=== PATIENT | male | born 1955 | race Caucasian/White ===

== ENCOUNTER 2021-10-21 08:18 | Day surgery (SDC) | payer MEDICARE, MEDICAID ==
[2021-10-14 16:15] LABS: BASOPHILS # (AUTO) 0.1 X10'3 (0-0.2); BASOPHILS % (AUTO) 1.5 % (0-1); EOSINOPHILS # (AUTO) 0.2 X10'3 (0-0.9); EOSINOPHILS % (AUTO) 3.1 % (0-6); LYMPHOCYTES # (AUTO) 1.9 X10'3 (1.1-4.8); LYMPHOCYTES % (AUTO) 25.3 % (21-51); MEAN CORPUSCULAR HEMOGLOBIN 29.9 PG (27.0-31.0); MEAN CORPUSCULAR HGB CONC 33.8 g/dL (33.0-36.5); MEAN CORPUSCULAR VOLUME 88.4 FL (78-98); MEAN PLATELET VOLUME 7.3 FL (7.4-10.4); MONOCYTES # (AUTO) 0.6 X10'3 (0-0.9); MONOCYTES % (AUTO) 8.1 % (2-12); NEUTROPHILS # (AUTO) 4.6 X10'3 (1.8-7.7); PRE OP HEMATOCRIT 38.6 % (42.0-52.0); PRE OP HEMOGLOBIN 13.1 g/dL (14.0-17.9); PRE OP PLATELET COUNT 272 X10'3 (140-440); RED BLOOD COUNT 4.37 X10'6 (4.70-6.10); RED CELL DISTRIBUTION WIDTH 13.8 % (11.5-14.5)
[2021-10-14 16:32] LABS: ALBUMIN 3.5 G/DL (3.4-5.0); ALBUMIN/GLOBULIN RATIO 0.9 (1.1-1.5); ALKALINE PHOSPHATASE 98 IU/L (46-116); BLOOD UREA NITROGEN 16 MG/DL (7-18); BUN/CREATININE RATIO 13.3 (5.4-32.0); CALCIUM 8.8 MG/DL (8.5-10.1); CHLORIDE 101 MMOL/L (99-107); PRE OP ALT 18 U/L (30-65); PRE OP ANION GAP 6 (8-16); PRE OP AST 16 U/L (10-37); PRE OP BILIRUB, TOTAL 0.3 MG/DL (0.0-1.0); PRE OP GLUCOSE 98 MG/DL (70-104); PRE OP POTASSIUM 3.8 MMOL/L (3.4-5.1); PRE OP SODIUM 138 MMOL/L (135-145); TOTAL CARBON DIOXIDE 30.9 MMOL/L (24-32); TOTAL PROTEIN 7.2 G/DL (6.4-8.2); eGFR 61 ML/MIN
[~2021-10-21] VITALS: Ht 172.7 cm; Wt 112.3 kg
[2021-10-21] VITALS (7 sets, daily range): BP systolic 124–134; BP diastolic 66–78
[~2021-10-21 08:18] MED LIST: ASPI-1265 PO; CLOP75TA34 PO; CYAN100087 PO; DOCUMENT DATE & TIME OF BETA-BLOCKER PO ONE; FERR324T PO; HYDR-3972 PO; LOSA1TAB39 PO; METF-1203 PO; PANT20TA18 PO; PREG150C46 PO; SERT-432; SIMV-45 PO; albuterol 2.5 MG/3 ML nebule NEB ONE; ceFAZolin inj. 2,000 MG in dextrose 5%-water 100 ML IV ONE; famotidine 20mg tablet PO ONE; ringers solution, lacted 1,000 ML IV SCH
[2021-10-21] MEDS ORDERED: BUPIVAcaine 0.5% inj/PF 30 ML ONE (09:33)
[2021-10-21] MEDS ORDERED: meperidine/PF 25mg/ml syringe IV PRN ×3 (09:40)
[2021-10-21] MEDS ORDERED: ringers solution, lacted 1,000 ML IV SCH (09:40)
[2021-10-21] MEDS ORDERED: ondansetron/PF 4mg/2ml inj IV PRN (09:40)
[2021-10-21] MEDS ORDERED: morphine 4 MG/ML inj SYRINge IV PRN (09:40)
[2021-10-21] MEDS ORDERED: morphine 2 MG/ML inj. syringe IV PRN (09:40)
[2021-10-21] MEDS ORDERED: proCHLORperazine 10 MG/2 ml inj IV PRN (09:40)
[2021-10-21] MEDS ORDERED: fentaNYL/PF 50MCG/1 ML 2ML syringe ONE (09:48)
[2021-10-21] MEDS ORDERED: midazolam 1 mg/ML 2ml injection ONE (09:49)
[2021-10-21] MEDS ORDERED: BUPIVAcaine 0.5% inj/PF 30 ml vial IJ ONE (10:09)
--- NOTE | 2021-10-21 10:25 | NUR ---
Received from OR via BED, accompanied by Anesthesiologist and report given by Anesthesiologist. PATIENT WAKING UP, NO S/S OF PAIN, V/S WNL, SCD ON, 20G TO LUE, RIGHT WRIST DRESSING CDI W/ SLING. ICE AND ELEVATED RUE
--- NOTE | 2021-10-21 11:15 | NUR ---
PATIENT A&OX4, DENIES PAIN, V/S WNL, SCD OFF, 20G TO LUE D/C, RIGHT WRIST DRESSING CDI W/ SLING. ICE AND ELEVATED RUE. I HAVE REVIEWED D/C INSTRUCTIONS WITH PATIENT and they have verbalized understanding patient d/c home with all belongings and family gave transport home.
== END 2021-10-21 11:15 | disposition home or self-care (01) ==
LOC: PAS 08:18
PROVIDERS: ATTEND Orthopaedic Surgery Hand Surgery
DX: G56.01 Carpal tunnel syndrome, right upper limb (principal); M65.341 Trigger finger, right ring finger; M67.441 Ganglion, right hand; F17.210 Nicotine dependence, cigarettes, uncomplicated; K21.9 Gastro-esophageal reflux disease without esophagitis; F41.9 Anxiety disorder, unspecified; I10 Essential (primary) hypertension; E11.9 Type 2 diabetes mellitus without complications; E66.9 Obesity, unspecified; Z68.38 Body mass index [BMI] 38.0-38.9, adult; Z20.822 Contact with and (suspected) exposure to COVID-19; Z79.899 Other long term (current) drug therapy; Z79.84 Long term (current) use of oral hypoglycemic drugs; Z79.82 Long term (current) use of aspirin; Z88.0 Allergy status to penicillin; Z88.5 Allergy status to narcotic agent; Z98.890 Other specified postprocedural states; Z96.643 Presence of artificial hip joint, bilateral; Z96.651 Presence of right artificial knee joint; Z98.1 Arthrodesis status
CPT/HCPCS: 26055; 26160; 36415; 64721; 80053; 82948; 85025; 93005; J0690; J2250; J3010; J7030; J7060; J7120; S0020; U0003; U0005; Z7506; Z7512; A4215; A6449; A7000

== ENCOUNTER 2021-12-02 05:25 | Day surgery (SDC) | payer MEDICARE, MEDICAID ==
[2021-11-27 14:17] LABS: BASOPHILS # (AUTO) 0.1 X10'3 (0-0.2); BASOPHILS % (AUTO) 1.4 % (0-1); EOSINOPHILS # (AUTO) 0.2 X10'3 (0-0.9); EOSINOPHILS % (AUTO) 3.9 % (0-6); LYMPHOCYTES # (AUTO) 1.7 X10'3 (1.1-4.8); LYMPHOCYTES % (AUTO) 26.3 % (21-51); MEAN CORPUSCULAR HGB CONC 33.9 g/dL (33.0-36.5); MEAN CORPUSCULAR VOLUME 88.4 FL (78-98); MEAN PLATELET VOLUME 7.4 FL (7.4-10.4); MONOCYTES # (AUTO) 0.5 X10'3 (0-0.9); MONOCYTES % (AUTO) 7.9 % (2-12); NEUTROPHILS # (AUTO) 3.8 X10'3 (1.8-7.7); NEUTROPHILS % (AUTO) 60.5 % (42-75); PRE OP HEMATOCRIT 37.6 % (42.0-52.0); PRE OP HEMOGLOBIN 12.7 g/dL (14.0-17.9); PRE OP PLATELET COUNT 246 X10'3 (140-440); RED BLOOD COUNT 4.25 X10'6 (4.70-6.10); RED CELL DISTRIBUTION WIDTH 14.1 % (11.5-14.5)
[2021-11-27 14:36] LABS: ALBUMIN 3.4 G/DL (3.4-5.0); ALBUMIN/GLOBULIN RATIO 0.9 (1.1-1.5); ALKALINE PHOSPHATASE 87 IU/L (46-116); BLOOD UREA NITROGEN 17 MG/DL (7-18); BUN/CREATININE RATIO 12.7 (5.4-32.0); CALCIUM 8.8 MG/DL (8.5-10.1); CHLORIDE 102 MMOL/L (99-107); CREATININE 1.34 MG/DL (0.60-1.10); PRE OP ALT 19 U/L (30-65); PRE OP ANION GAP 7 (8-16); PRE OP AST 15 U/L (10-37); PRE OP BILIRUB, TOTAL 0.4 MG/DL (0.0-1.0); PRE OP GLUCOSE 150 MG/DL (70-104); PRE OP POTASSIUM 3.8 MMOL/L (3.4-5.1); PRE OP SODIUM 138 MMOL/L (135-145); TOTAL CARBON DIOXIDE 28.8 MMOL/L (24-32); TOTAL PROTEIN 7.1 G/DL (6.4-8.2); eGFR 53 ML/MIN
[~2021-12-02] VITALS: Ht 172.7 cm; Wt 114.9 kg
[~2021-12-02 05:25] MED LIST changes: -DOCUMENT DATE & TIME OF BETA-BLOCKER PO ONE; -SERT-432; +SERT-432 PO; -albuterol 2.5 MG/3 ML nebule NEB ONE; -ceFAZolin inj. 2,000 MG in dextrose 5%-water 100 ML IV ONE; -famotidine 20mg tablet PO ONE
[2021-12-02 05:30] VITALS: BP 122/67
[2021-12-02] MEDS ORDERED: famotidine 20mg tablet PO ONE (05:30)
[2021-12-02] MEDS ORDERED: clindamycin-Cleocin 900mg/D5W 50 ML IV ONE (05:30)
[2021-12-02] MEDS ORDERED: BUPIVAcaine/PF 2.5mg/ml (0.25%) 10ml vial ONE (06:50)
[2021-12-02] MEDS ORDERED: fentaNYL/PF 50MCG/1 ML 2ML syringe ONE (07:23)
[2021-12-02] MEDS ORDERED: MIDAZolam 1 MG/ML 5ML VIAL ONE (07:23)
[2021-12-02 07:46] VITALS: BP 106/70
--- NOTE | 2021-12-02 07:46 | NUR ---
from or on [facility] accompanied by dr. kovacs. left hand dsg cdi. vss, no resp distress. skin warm and dry.
[2021-12-02] MEDS ORDERED: morphine 2 MG/ML inj. syringe IV PRN (07:50)
[2021-12-02] MEDS ORDERED: hydrALAZINE 20mg/ml inj. IV PRN (07:50)
[2021-12-02] MEDS ORDERED: fentaNYL/PF 50MCG/1 ML 2ML syringe IV PRN ×2 (07:50)
[2021-12-02] MEDS ORDERED: ringers solution, lacted 1,000 ML IV SCH (07:50)
[2021-12-02] MEDS ORDERED: ondansetron/PF 4mg/2ml inj IV PRN (07:50)
[2021-12-02] MEDS ORDERED: labetalol 20mg/4ml (5mg/ml) syringe IV PRN (07:50)
[2021-12-02] MEDS ORDERED: morphine 4 MG/ML inj SYRINge IV PRN (07:50)
[2021-12-02 07:56] VITALS: BP 105/72
[2021-12-02 08:06] VITALS: BP 112/69
[2021-12-02 08:16] VITALS: BP 103/79
[2021-12-02 08:26] VITALS: BP 126/66
--- NOTE | 2021-12-02 08:46 | NUR ---
Patient meets discharge criteria, 20G PIV removed from right hand, dressing to left wrist CDI. All discharge instructions understood. patient discharged home with sister, with all belongings.
== END 2021-12-02 08:46 | disposition home or self-care (01) ==
LOC: PAS 05:25
PROVIDERS: ATTEND Orthopaedic Surgery Hand Surgery
DX: G56.02 Carpal tunnel syndrome, left upper limb (principal); I10 Essential (primary) hypertension; K21.9 Gastro-esophageal reflux disease without esophagitis; F41.9 Anxiety disorder, unspecified; E11.9 Type 2 diabetes mellitus without complications; E78.00 Pure hypercholesterolemia, unspecified; E66.9 Obesity, unspecified; Z68.37 Body mass index [BMI] 37.0-37.9, adult; Z98.1 Arthrodesis status; Z98.890 Other specified postprocedural states; Z96.643 Presence of artificial hip joint, bilateral; Z96.659 Presence of unspecified artificial knee joint; Z86.718 Personal history of other venous thrombosis and embolism; Z79.01 Long term (current) use of anticoagulants; Z79.899 Other long term (current) drug therapy; Z79.82 Long term (current) use of aspirin; Z88.5 Allergy status to narcotic agent; Z88.0 Allergy status to penicillin
CPT/HCPCS: 29848; 36415; 80053; 82948; 85025; J2250; J3010; J3490; J7030; J7120; Z7506; Z7512; A4215

== ENCOUNTER 2023-07-27 12:04 | Emergency (ER) | payer MEDICARE, MEDICAID ==
[~2023-07-27] VITALS: Ht 174 cm; Wt 102.7 kg
[~2023-07-27 12:04] MED LIST changes: -PREG150C46 PO; +PREG150C47 PO; -ringers solution, lacted 1,000 ML IV SCH
[2023-07-27] MEDS ORDERED: LIDO700A32 TOP (15:18)
[2023-07-27] MEDS ORDERED: PRED10TA23 PO (15:20)
[2023-07-27] MEDS: dexamethasone sod phosphate 10mg/ml inj IM STA (15:25)
[2023-07-27 15:47] VITALS: BP 160/82; PULSE 53; RESP 16; TEMP 97.7; O2SAT 99
== END 2023-07-27 15:51 | disposition home or self-care (01) ==
LOC: ER 12:04
DX: M75.101 Unspecified rotator cuff tear or rupture of right shoulder, not specified as traumatic (principal); G89.29 Other chronic pain; M54.9 Dorsalgia, unspecified; Z88.0 Allergy status to penicillin; Z88.5 Allergy status to narcotic agent; Z79.899 Other long term (current) drug therapy
CPT/HCPCS: 73030; 96372; 99283; J1100